=== PATIENT | male | born 1945 | race African-American/Black ===

== ENCOUNTER 2020-10-04 17:49 | Inpatient (IN) | payer MEDICARE, MEDICAID ==
[~2020-10-04] VITALS: Ht 177.8 cm; Wt 62.6 kg
[~2020-10-04 17:49] MED LIST: ALL100T PO; ATE50T PO; GLIP5TAB12 PO; LATA0.0019 EACHEYE; OXYB15TA12 PO; POT20T PO; SIMV-13 PO; TRIA37.577 PO
[2020-10-04] MEDS ORDERED: SODIUM CHLORIDE 0.9% 500 ML IVB ONE (18:15)
[2020-10-04] MEDS ORDERED: ZINC SULFATE 220mg CAP or TAB PO ONE (19:30)
[2020-10-04] MEDS ORDERED: ASCORBIC ACID 500 MG TAB PO ONE (19:30)
[2020-10-04] MEDS ORDERED: CHOLECALCIFEROL (VITD3) 2,000 UNIT CAP PO ONE (19:30)
[2020-10-04] MEDS ORDERED: REMDESIVIR PER PHARMACY 0 ML IV SCH (19:30)
[2020-10-04] MEDS ORDERED: methylPREDNISolone SOD SUCC 125 MG/2 ML VL IV ONE (19:30)
[2020-10-04] MEDS ORDERED: AZITHROMYCIN 500MG/ 250ML 250 ML IV ONE (19:30)
[2020-10-04 19:55] LABS: Basophils # (auto) 0 10 ^3/uL (0-0.2); Basophils % (auto) 0.1 % (0.0-2.0); Eosinophils # (auto) 0.1 10 ^3/uL (0-0.8); Red Cell Distribution Width 13.8 % (11.8-14.3)
[2020-10-04 19:58] LABS: Eosinophils % (auto) 0.8 % (0.0-7.0); Hemoglobin 18.1 g/dL (13.5-17.5); Lymphocytes # (auto) 0.9 10 ^3/uL (0.4-5.4); Lymphocytes % (auto) 6.7 % (10.0-50.0); Mean Corpuscular Hemoglobin 26.9 pg (28.0-32.0); Mean Corpuscular Hgb Conc. 32.9 g/dL (32.0-36.0); Mean Corpuscular Volume 81.8 fL (80.0-100.0); Monocytes # (auto) 0.8 10 ^3/uL (0-1.3); Neutrophils # (auto) 11.3 10 ^3/uL (1.6-8.6); Neutrophils % (auto) 86.4 % (37.0-80.0); Platelet Count (auto) 169 10^3/uL (140-450); Red Blood Cells 6.73 10^6/uL (4.5-5.90)
[2020-10-04 20:10] LABS: Potassium 4.6 mmol/L (3.5-5.1)
[2020-10-04 20:23] LABS: Albumin 2.6 g/dL (3.4-5.0); BUN/Creatinine Ratio 25.4; Bilirubin, Total 1.3 mg/dL (0.2-1.0); CRP High Sensitivity 17.4 mg/dL (< 0.3); Calcium 8.4 mg/dL (8.5-10.1); Total Protein 7.3 g/dL (6.4-8.2)
[2020-10-05] MEDS ORDERED: ONDANSETRON HCL 4 MG/2 ML VIAL IV PRN (01:30)
[2020-10-05] MEDS ORDERED: DOCUSATE SOD 100 MG CAP PO PRN (01:30)
[2020-10-05] MEDS ORDERED: NITROGLYCERIN 0.4 MG SL TAB SL PRN (01:30)
[2020-10-05] MEDS ORDERED: HYDROcodone-ACET 5/325MG TAB PO PRN (01:30)
[2020-10-05] MEDS ORDERED: MORPHINE SULF INJ 2 MG/ML SYRINGE 1ML IV PRN (01:30)
[2020-10-05] MEDS ORDERED: DEXTROSE (50%) 50ML SYRG IV PRN ×2 (01:30→17:15)
[2020-10-05] MEDS ORDERED: ACETAMINOPHEN 325 MG TAB PO PRN (01:30)
[2020-10-05 02:27] LABS: Basophils # (auto) 0 10 ^3/uL (0-0.2); Eosinophils # (auto) 0 10 ^3/uL (0-0.8); Hemoglobin 17.6 g/dL (13.5-17.5); Mean Corpuscular Hemoglobin 26.2 pg (28.0-32.0); Monocytes # (auto) 0.3 10 ^3/uL (0-1.3); Monocytes % (auto) 2.8 % (0.0-12.0); Platelet Count (auto) 162 10^3/uL (140-450)
[2020-10-05 02:28] LABS: Basophils % (auto) 0.1 % (0.0-2.0); Eosinophils % (auto) 0.2 % (0.0-7.0); Hematocrit 54.9 % (41.0-53.0); Lymphocytes # (auto) 0.5 10 ^3/uL (0.4-5.4); Lymphocytes % (auto) 3.9 % (10.0-50.0); Mean Corpuscular Volume 81.9 fL (80.0-100.0); Neutrophils # (auto) 11.2 10 ^3/uL (1.6-8.6); Nucleated Red Blood Cells % 1.3 %; Red Cell Distribution Width 13.9 % (11.8-14.3)
[2020-10-05 02:46] LABS: Albumin 2.5 g/dL (3.4-5.0); Calcium 8.2 mg/dL (8.5-10.1); Magnesium 3.6 mg/dL (1.6-2.6); Potassium 4.6 mmol/L (3.5-5.1)
[2020-10-05 02:51] LABS: Bilirubin, Total 1.3 mg/dL (0.2-1.0); Total Protein 7.1 g/dL (6.4-8.2)
[2020-10-05 02:53] LABS: BUN/Creatinine Ratio 26.3
[2020-10-05] MEDS: SODIUM CHLOR 0.9% PF (SALINE LOCK) 10ML VIAL/SYR IV SCH ×3 (05:57→21:34)
[2020-10-05] MEDS: ACCU-CHEK COMFORT CURVE STRIP VI SCH ×3 (07:02→18:00)
[2020-10-05] MEDS: InsuLIN REG 1unit/0.01ml Soln (100units/ml) SC SCH ×3 (07:04→19:14)
[2020-10-05] MEDS: ZINC SULFATE 220mg CAP or TAB PO SCH (09:18)
[2020-10-05] MEDS: MULTIPLE VITAMIN TAB PO SCH (09:18)
[2020-10-05] MEDS: CHOLECALCIFEROL (VITD3) 2,000 UNIT CAP PO SCH (09:19)
[2020-10-05] MEDS: FAMOTIDINE 20 MG TAB PO SCH ×2 (09:19→21:34)
[2020-10-05] MEDS: ASCORBIC ACID 500 MG TAB PO SCH ×2 (09:19→21:34)
[2020-10-05] MEDS: DexAMETHasone SOD PHOS 10MG/1ML VIAL INJ IV SCH (09:32)
[2020-10-05] MEDS: DOXYCYCLINE 100MG/250ML 250 ML IV SCH ×2 (09:46→22:08)
[2020-10-05] MEDS: HEPARIN SODIUM (PORCINE) 5000 UNITS/ML 1ML VIAL SC SCH ×2 (09:47→21:34)
[2020-10-05] MEDS: BUDESONIDE (INHALATION) 180 MCG IH IN SCH ×2 (10:00→19:02)
[2020-10-05 13:39] VITALS: BP 125/89
[2020-10-05] MEDS ORDERED: SOD CHL 0.45% 1,000 ML IV ONE (17:15)
[2020-10-05] MEDS ORDERED: REMDESIVIR 200 MG in NS 210ml LOADING DOSE ADULT IV ONE (18:00)
[2020-10-05] MEDS ORDERED: InsuLIN REG 1unit/0.01ml Soln (100units/ml) SC SCH (22:00)
[2020-10-06] MEDS: ACCU-CHEK COMFORT CURVE STRIP VI SCH ×5 (00:08→18:00)
[2020-10-06] MEDS: InsuLIN REG 1unit/0.01ml Soln (100units/ml) SC SCH ×6 (00:09→23:06)
[2020-10-06 01:00] VITALS: BP 142/95
[2020-10-06 01:01] VITALS: BP 142/95
[2020-10-06 02:07] VITALS: BP 142/92
[2020-10-06] MEDS: SODIUM CHLOR 0.9% PF (SALINE LOCK) 10ML VIAL/SYR IV SCH ×3 (05:55→23:03)
[2020-10-06] MEDS: ALBUTEROL SULF HFA 90MCG INH 200DOSE IN PRN ×2 (06:45→21:05)
[2020-10-06] MEDS: BUDESONIDE (INHALATION) 180 MCG IH IN SCH ×2 (06:45→21:04)
[2020-10-06 08:00] VITALS: BP_SYST 165; BP_SYST 93; BP_DIAS 137; BP_DIAS 58
[2020-10-06] MEDS: DOXYCYCLINE 100MG/250ML 250 ML IV SCH ×2 (09:36→23:02)
[2020-10-06] MEDS: ZINC SULFATE 220mg CAP or TAB PO SCH (09:36)
[2020-10-06] MEDS: DexAMETHasone SOD PHOS 10MG/1ML VIAL INJ IV SCH (09:36)
[2020-10-06] MEDS: FAMOTIDINE 20 MG TAB PO SCH ×2 (09:37→23:02)
[2020-10-06] MEDS: MULTIPLE VITAMIN TAB PO SCH (09:37)
[2020-10-06] MEDS: CHOLECALCIFEROL (VITD3) 2,000 UNIT CAP PO SCH (09:37)
[2020-10-06] MEDS: ASCORBIC ACID 500 MG TAB PO SCH ×2 (09:37→23:02)
[2020-10-06] MEDS: HEPARIN SODIUM (PORCINE) 5000 UNITS/ML 1ML VIAL SC SCH ×2 (09:53→23:05)
[2020-10-06 13:17] LABS: Urine Bacteria FEW /hpf (None Seen); Urine Blood Negative /uL (Negative); Urine Specific Gravity 1.021 (1.001-1.035); Urine WBC 2 /hpf (0 - 3)
[2020-10-06 13:27] LABS: Protein, Urine 49.1 mg/dL (0.0-11.9)
[2020-10-06 14:21] LABS: Basophils # (auto) 0.1 10 ^3/uL (0-0.2); Basophils % (auto) 0.3 % (0.0-2.0); Eosinophils # (auto) 0 10 ^3/uL (0-0.8); Hematocrit 55.4 % (41.0-53.0); Hemoglobin 17.5 g/dL (13.5-17.5); Lymphocytes # (auto) 0.5 10 ^3/uL (0.4-5.4); Lymphocytes % (auto) 3.1 % (10.0-50.0); Mean Corpuscular Hemoglobin 26.1 pg (28.0-32.0); Mean Corpuscular Hgb Conc. 31.6 g/dL (32.0-36.0); Mean Corpuscular Volume 82.8 fL (80.0-100.0); Monocytes # (auto) 0.8 10 ^3/uL (0-1.3); Monocytes % (auto) 4.7 % (0.0-12.0); Neutrophils # (auto) 16.2 10 ^3/uL (1.6-8.6); Neutrophils % (auto) 91.9 % (37.0-80.0); Nucleated Red Blood Cells % 0.3 %; Platelet Count (auto) 163 10^3/uL (140-450); Red Cell Distribution Width 14.1 % (11.8-14.3); White Blood Cell 17.6 10^3/uL (4.4-10.8)
[2020-10-06 14:37] LABS: Albumin 2.6 g/dL (3.4-5.0); Calcium 8.4 mg/dL (8.5-10.1); Potassium 4.3 mmol/L (3.5-5.1)
[2020-10-06 14:40] LABS: BUN/Creatinine Ratio 34.5; Bilirubin, Total 1.2 mg/dL (0.2-1.0)
[2020-10-06 16:22] VITALS: BP 140/94
[2020-10-06 16:36] LABS: BUN/Creatinine Ratio 34.5; Calcium 8.6 mg/dL (8.5-10.1); Potassium 4.5 mmol/L (3.5-5.1)
[2020-10-06] MEDS: REMDESIVIR 100mg 100 MG in SODIUM CHL 0.9% 230 ML IV SCH (17:30)
[2020-10-06] MEDS: INSULIN LANTUS (GLARGINE) 1 /0.01ml (100units/ml) SC SCH (23:04)
[2020-10-06] MEDS: D5W 5% 1,000 ML IV SCH (23:24)
[2020-10-07] VITALS: BP_SYST 137; BP_SYST 143; BP_DIAS 91; BP_DIAS 93
[2020-10-07] MEDS: ACCU-CHEK COMFORT CURVE STRIP VI SCH ×4 (06:10→17:31)
[2020-10-07] MEDS: InsuLIN REG 1unit/0.01ml Soln (100units/ml) SC SCH ×3 (06:12→17:32)
[2020-10-07] MEDS: D5W 5% 1,000 ML IV SCH ×2 (06:21→15:15)
[2020-10-07] MEDS: SODIUM CHLOR 0.9% PF (SALINE LOCK) 10ML VIAL/SYR IV SCH ×3 (06:21→22:51)
[2020-10-07] MEDS: ALBUTEROL SULF HFA 90MCG INH 200DOSE IN PRN ×2 (07:59→20:14)
[2020-10-07] MEDS: BUDESONIDE (INHALATION) 180 MCG IH IN SCH ×2 (07:59→20:14)
[2020-10-07 08:00] VITALS: BP 132/94
[2020-10-07 08:43] LABS: Basophils # (auto) 0 10 ^3/uL (0-0.2); Eosinophils # (auto) 0 10 ^3/uL (0-0.8); Hemoglobin 17.3 g/dL (13.5-17.5); Lymphocytes # (auto) 0.8 10 ^3/uL (0.4-5.4); Monocytes # (auto) 0.7 10 ^3/uL (0-1.3); Neutrophils # (auto) 10.4 10 ^3/uL (1.6-8.6)
[2020-10-07 08:45] LABS: Basophils % (auto) 0.1 % (0.0-2.0); Eosinophils % (auto) 0.1 % (0.0-7.0); Hematocrit 54.2 % (41.0-53.0); Lymphocytes % (auto) 6.7 % (10.0-50.0); Mean Corpuscular Hemoglobin 26.3 pg (28.0-32.0); Mean Corpuscular Hgb Conc. 31.9 g/dL (32.0-36.0); Mean Corpuscular Volume 82.3 fL (80.0-100.0); Monocytes % (auto) 5.9 % (0.0-12.0); Neutrophils % (auto) 87.2 % (37.0-80.0); Nucleated Red Blood Cells % 0.7 %; Platelet Count (auto) 161 10^3/uL (140-450); Red Blood Cells 6.58 10^6/uL (4.5-5.90); Red Cell Distribution Width 13.8 % (11.8-14.3); White Blood Cell 11.9 10^3/uL (4.4-10.8)
[2020-10-07 09:05] LABS: Potassium 4.1 mmol/L (3.5-5.1)
[2020-10-07 09:14] LABS: Bilirubin, Total 1.2 mg/dL (0.2-1.0); Total Protein 6.7 g/dL (6.4-8.2)
[2020-10-07] MEDS: DexAMETHasone SOD PHOS 10MG/1ML VIAL INJ IV SCH (10:25)
[2020-10-07] MEDS: MULTIPLE VITAMIN TAB PO SCH (10:25)
[2020-10-07] MEDS: HEPARIN SODIUM (PORCINE) 5000 UNITS/ML 1ML VIAL SC SCH ×2 (10:25→22:51)
[2020-10-07] MEDS: ZINC SULFATE 220mg CAP or TAB PO SCH (10:25)
[2020-10-07] MEDS: DOXYCYCLINE 100MG/250ML 250 ML IV SCH ×2 (10:25→22:51)
[2020-10-07] MEDS: FAMOTIDINE 20 MG TAB PO SCH ×2 (10:25→22:51)
[2020-10-07] MEDS: CHOLECALCIFEROL (VITD3) 2,000 UNIT CAP PO SCH (10:25)
[2020-10-07] MEDS: ASCORBIC ACID 500 MG TAB PO SCH ×2 (10:25→22:51)
[2020-10-07] MEDS: NYSTATIN (MOUTH-THROAT) 500,000 UNITS/5 ML SUSP MT SCH ×3 (12:00→22:51)
[2020-10-07 12:25] LABS: Calcium 8.5 mg/dL (8.5-10.1)
[2020-10-07] MEDS: REMDESIVIR 100mg 100 MG in SODIUM CHL 0.9% 230 ML IV SCH (15:07)
[2020-10-07 16:04] VITALS: BP 135/84
[2020-10-07] MEDS: INSULIN LANTUS (GLARGINE) 1 /0.01ml (100units/ml) SC SCH (22:52)
[2020-10-08] VITALS: BP 130/87
[2020-10-08] MEDS: D5W 5% 1,000 ML IV SCH ×2 (01:15→14:48)
[2020-10-08] MEDS: InsuLIN REG 1unit/0.01ml Soln (100units/ml) SC SCH ×4 (06:00→17:42)
[2020-10-08] MEDS: ACCU-CHEK COMFORT CURVE STRIP VI SCH ×4 (06:00→17:18)
[2020-10-08] MEDS: SODIUM CHLOR 0.9% PF (SALINE LOCK) 10ML VIAL/SYR IV SCH ×3 (06:07→21:55)
[2020-10-08] MEDS: NYSTATIN (MOUTH-THROAT) 500,000 UNITS/5 ML SUSP MT SCH ×4 (06:32→22:00)
[2020-10-08 06:49] LABS: Basophils # (auto) 0 10 ^3/uL (0-0.2); Basophils % (auto) 0.1 % (0.0-2.0); Hemoglobin 16.1 g/dL (13.5-17.5); Mean Corpuscular Volume 81.4 fL (80.0-100.0); White Blood Cell 11.4 10^3/uL (4.4-10.8)
[2020-10-08 06:51] LABS: Eosinophils # (auto) 0 10 ^3/uL (0-0.8); Eosinophils % (auto) 0.4 % (0.0-7.0); Lymphocytes % (auto) 8.8 % (10.0-50.0); Mean Corpuscular Hemoglobin 26.8 pg (28.0-32.0); Mean Corpuscular Hgb Conc. 32.9 g/dL (32.0-36.0); Monocytes # (auto) 0.6 10 ^3/uL (0-1.3); Neutrophils # (auto) 9.8 10 ^3/uL (1.6-8.6); Neutrophils % (auto) 85.7 % (37.0-80.0); Nucleated Red Blood Cells % 0.5 %; Platelet Count (auto) 135 10^3/uL (140-450); Red Blood Cells 6.02 10^6/uL (4.5-5.90); Red Cell Distribution Width 13.9 % (11.8-14.3)
[2020-10-08 07:16] LABS: Potassium 3.9 mmol/L (3.5-5.1)
[2020-10-08 07:28] LABS: Albumin 2.4 g/dL (3.4-5.0); BUN/Creatinine Ratio 25.2; Bilirubin, Total 1.2 mg/dL (0.2-1.0); Total Protein 6.3 g/dL (6.4-8.2)
[2020-10-08] MEDS: BUDESONIDE (INHALATION) 180 MCG IH IN SCH ×2 (07:32→21:32)
[2020-10-08] MEDS: ALBUTEROL SULF HFA 90MCG INH 200DOSE IN PRN ×2 (07:32→21:32)
[2020-10-08 08:00] VITALS: BP 130/76
[2020-10-08] MEDS: ZINC SULFATE 220mg CAP or TAB PO SCH (10:00)
[2020-10-08] MEDS: FAMOTIDINE 20 MG TAB PO SCH ×2 (10:01→22:00)
[2020-10-08] MEDS: MULTIPLE VITAMIN TAB PO SCH (10:01)
[2020-10-08] MEDS: ASCORBIC ACID 500 MG TAB PO SCH ×2 (10:01→22:00)
[2020-10-08] MEDS: DexAMETHasone SOD PHOS 10MG/1ML VIAL INJ IV SCH (10:02)
[2020-10-08] MEDS: CHOLECALCIFEROL (VITD3) 2,000 UNIT CAP PO SCH (10:02)
[2020-10-08] MEDS: DOXYCYCLINE 100MG/250ML 250 ML IV SCH ×2 (10:02→21:56)
[2020-10-08] MEDS: HEPARIN SODIUM (PORCINE) 5000 UNITS/ML 1ML VIAL SC SCH ×2 (10:13→22:05)
[2020-10-08 16:00] VITALS: BP 91/46
[2020-10-08] MEDS: REMDESIVIR 100mg 100 MG in SODIUM CHL 0.9% 230 ML IV SCH (16:43)
[2020-10-08 16:45] VITALS: BP 138/74
[2020-10-08 17:00] VITALS: BP 130/82
[2020-10-08 19:05] VITALS: BP 133/84
[2020-10-08] MEDS: INSULIN LANTUS (GLARGINE) 1 /0.01ml (100units/ml) SC SCH (22:05)
[2020-10-09] VITALS: BP 148/94
[2020-10-09] MEDS: SODIUM CHLOR 0.9% PF (SALINE LOCK) 10ML VIAL/SYR IV SCH ×3 (05:40→23:28)
[2020-10-09] MEDS: NYSTATIN (MOUTH-THROAT) 500,000 UNITS/5 ML SUSP MT SCH ×4 (05:40→23:02)
[2020-10-09] MEDS: ACCU-CHEK COMFORT CURVE STRIP VI SCH ×5 (05:41→23:47)
[2020-10-09] MEDS: InsuLIN REG 1unit/0.01ml Soln (100units/ml) SC SCH ×5 (06:09→23:46)
[2020-10-09] MEDS: BUDESONIDE (INHALATION) 180 MCG IH IN SCH ×2 (06:33→20:38)
[2020-10-09] MEDS: ALBUTEROL SULF HFA 90MCG INH 200DOSE IN PRN ×2 (06:34→20:38)
[2020-10-09 07:57] LABS: Basophils # (auto) 0 10 ^3/uL (0-0.2); Basophils % (auto) 0.1 % (0.0-2.0); Eosinophils # (auto) 0 10 ^3/uL (0-0.8); Eosinophils % (auto) 0.3 % (0.0-7.0); Lymphocytes # (auto) 1.1 10 ^3/uL (0.4-5.4); Monocytes # (auto) 0.7 10 ^3/uL (0-1.3); Monocytes % (auto) 4.7 % (0.0-12.0); Neutrophils # (auto) 12.5 10 ^3/uL (1.6-8.6); Nucleated Red Blood Cells % 0.3 %
[2020-10-09 08:00] VITALS: BP 128/86
[2020-10-09 08:02] LABS: Lymphocytes % (auto) 7.6 % (10.0-50.0); Mean Corpuscular Hemoglobin 26.3 pg (28.0-32.0); Mean Corpuscular Volume 82.2 fL (80.0-100.0); Neutrophils % (auto) 87.3 % (37.0-80.0); Platelet Count (auto) 152 10^3/uL (140-450); Red Blood Cells 6.45 10^6/uL (4.5-5.90); Red Cell Distribution Width 13.8 % (11.8-14.3); White Blood Cell 14.3 10^3/uL (4.4-10.8)
[2020-10-09 08:14] LABS: Potassium 3.9 mmol/L (3.5-5.1)
[2020-10-09 08:29] LABS: Albumin 2.5 g/dL (3.4-5.0); BUN/Creatinine Ratio 23.6; Bilirubin, Total 1.3 mg/dL (0.2-1.0); CRP High Sensitivity 5.03 mg/dL (< 0.3); Calcium 8.3 mg/dL (8.5-10.1); Total Protein 6.6 g/dL (6.4-8.2)
[2020-10-09] MEDS: ZINC SULFATE 220mg CAP or TAB PO SCH (10:19)
[2020-10-09] MEDS: MULTIPLE VITAMIN TAB PO SCH (10:19)
[2020-10-09] MEDS: DexAMETHasone SOD PHOS 10MG/1ML VIAL INJ IV SCH (10:19)
[2020-10-09] MEDS: FAMOTIDINE 20 MG TAB PO SCH ×2 (10:19→23:02)
[2020-10-09] MEDS: CHOLECALCIFEROL (VITD3) 2,000 UNIT CAP PO SCH (10:20)
[2020-10-09] MEDS: ASCORBIC ACID 500 MG TAB PO SCH ×2 (10:20→23:02)
[2020-10-09] MEDS: HEPARIN SODIUM (PORCINE) 5000 UNITS/ML 1ML VIAL SC SCH ×2 (10:20→23:19)
[2020-10-09] MEDS: DOXYCYCLINE 100MG/250ML 250 ML IV SCH ×2 (10:47→23:01)
[2020-10-09] MEDS: REMDESIVIR 100mg 100 MG in SODIUM CHL 0.9% 230 ML IV SCH (14:38)
[2020-10-09 16:23] VITALS: BP 122/84
[2020-10-09] MEDS: Glucerna Carbsteady SHAKE Vanilla 8oz PO SCH (17:56)
[2020-10-09] MEDS ORDERED: Ensure HIGH Protein Chocolate 8oz Bottle PO SCH (18:00)
[2020-10-09] MEDS: INSULIN LANTUS (GLARGINE) 1 /0.01ml (100units/ml) SC SCH (23:20)
[2020-10-10] VITALS: BP 125/93
[2020-10-10] MEDS: ACCU-CHEK COMFORT CURVE STRIP VI SCH ×4 (05:40→23:41)
[2020-10-10] MEDS: NYSTATIN (MOUTH-THROAT) 500,000 UNITS/5 ML SUSP MT SCH ×4 (05:40→21:56)
[2020-10-10] MEDS: InsuLIN REG 1unit/0.01ml Soln (100units/ml) SC SCH ×4 (05:40→23:56)
[2020-10-10] MEDS: SODIUM CHLOR 0.9% PF (SALINE LOCK) 10ML VIAL/SYR IV SCH ×3 (05:40→21:56)
[2020-10-10] MEDS: BUDESONIDE (INHALATION) 180 MCG IH IN SCH ×2 (06:30→20:22)
[2020-10-10] MEDS: ALBUTEROL SULF HFA 90MCG INH 200DOSE IN PRN ×2 (06:30→20:23)
[2020-10-10 06:39] LABS: Hematocrit 52.2 % (41.0-53.0); Hemoglobin 17.2 g/dL (13.5-17.5); Mean Corpuscular Hemoglobin 26.9 pg (28.0-32.0); Mean Corpuscular Volume 81.4 fL (80.0-100.0); Platelet Count (auto) 173 10^3/uL (140-450); Red Blood Cells 6.41 10^6/uL (4.5-5.90); Red Cell Distribution Width 13.8 % (11.8-14.3)
[2020-10-10 06:49] LABS: Basophils % (manual) 0 (0.0-2.0); Blast Cells 0; Metamyelocytes % 0; Myelocytes % 0; Promyelocytes % 0; Reactive Lymphocytes 0
[2020-10-10 07:00] LABS: Potassium 4.1 mmol/L (3.5-5.1)
[2020-10-10 07:13] LABS: Albumin 2.4 g/dL (3.4-5.0); Bilirubin, Total 1.2 mg/dL (0.2-1.0); Calcium 8.3 mg/dL (8.5-10.1); Total Protein 6.6 g/dL (6.4-8.2)
[2020-10-10 08:00] VITALS: BP 124/90
[2020-10-10] MEDS: Glucerna Carbsteady SHAKE Vanilla 8oz PO SCH ×3 (08:00→18:07)
[2020-10-10 08:53] LABS: Band Neutrophils % (manual) 5; Eosinophils % (manual) 2 (0-7); Lymphocytes % (manual) 9 (10.0-50.0); Monocytes % (manual) 1 (0-12)
[2020-10-10] MEDS: FAMOTIDINE 20 MG TAB PO SCH ×2 (10:00→21:56)
[2020-10-10] MEDS: MULTIPLE VITAMIN TAB PO SCH (10:00)
[2020-10-10] MEDS: CHOLECALCIFEROL (VITD3) 2,000 UNIT CAP PO SCH (10:37)
[2020-10-10] MEDS: DexAMETHasone SOD PHOS 10MG/1ML VIAL INJ IV SCH (10:37)
[2020-10-10] MEDS: ZINC SULFATE 220mg CAP or TAB PO SCH (10:37)
[2020-10-10] MEDS: ASCORBIC ACID 500 MG TAB PO SCH ×2 (10:37→21:56)
[2020-10-10] MEDS: HEPARIN SODIUM (PORCINE) 5000 UNITS/ML 1ML VIAL SC SCH ×2 (10:55→21:57)
[2020-10-10 16:00] VITALS: BP 117/94
[2020-10-10] MEDS: INSULIN LANTUS (GLARGINE) 1 /0.01ml (100units/ml) SC SCH (21:57)
[2020-10-10] MEDS: PIPERACILLIN-TAZOB 3.375GM 100 ML IV SCH (23:41)
[2020-10-11] VITALS: BP 147/88
[2020-10-11] MEDS: NYSTATIN (MOUTH-THROAT) 500,000 UNITS/5 ML SUSP MT SCH ×4 (06:00→22:11)
[2020-10-11] MEDS: BUDESONIDE (INHALATION) 180 MCG IH IN SCH ×2 (06:05→19:53)
[2020-10-11] MEDS: ACCU-CHEK COMFORT CURVE STRIP VI SCH ×4 (06:06→23:54)
[2020-10-11] MEDS: SODIUM CHLOR 0.9% PF (SALINE LOCK) 10ML VIAL/SYR IV SCH ×3 (06:07→22:11)
[2020-10-11] MEDS: PIPERACILLIN-TAZOB 3.375GM 100 ML IV SCH ×4 (06:07→23:54)
[2020-10-11] MEDS: InsuLIN REG 1unit/0.01ml Soln (100units/ml) SC SCH ×3 (06:07→17:47)
[2020-10-11 08:00] VITALS: BP 134/94
[2020-10-11 08:46] LABS: Basophils # (auto) 0 10 ^3/uL (0-0.2); Eosinophils # (auto) 0.1 10 ^3/uL (0-0.8); Eosinophils % (auto) 0.3 % (0.0-7.0); Monocytes # (auto) 1.2 10 ^3/uL (0-1.3)
[2020-10-11 08:48] LABS: Basophils % (auto) 0.2 % (0.0-2.0); Hemoglobin 17.8 g/dL (13.5-17.5); Lymphocytes # (auto) 0.9 10 ^3/uL (0.4-5.4); Lymphocytes % (auto) 4.1 % (10.0-50.0); Mean Corpuscular Hemoglobin 26.3 pg (28.0-32.0); Mean Corpuscular Hgb Conc. 31.5 g/dL (32.0-36.0); Mean Corpuscular Volume 83.6 fL (80.0-100.0); Monocytes % (auto) 5.7 % (0.0-12.0); Neutrophils # (auto) 19.3 10 ^3/uL (1.6-8.6); Neutrophils % (auto) 89.7 % (37.0-80.0); Nucleated Red Blood Cells % 1.3 %; Platelet Count (auto) 195 10^3/uL (140-450); Red Blood Cells 6.77 10^6/uL (4.5-5.90); Red Cell Distribution Width 14.4 % (11.8-14.3); White Blood Cell 21.5 10^3/uL (4.4-10.8)
[2020-10-11 08:50] LABS: Hematocrit 56.6 % (41.0-53.0)
[2020-10-11 09:26] LABS: Potassium 4.7 mmol/L (3.5-5.1)
[2020-10-11 09:27] LABS: BUN/Creatinine Ratio 24.9; Bilirubin, Total 1.2 mg/dL (0.2-1.0); Calcium 8.3 mg/dL (8.5-10.1)
[2020-10-11 09:28] LABS: Albumin 2.4 g/dL (3.4-5.0)
[2020-10-11] MEDS: Glucerna Carbsteady SHAKE Vanilla 8oz PO SCH ×3 (09:34→17:54)
[2020-10-11] MEDS: FAMOTIDINE 20 MG TAB PO SCH ×2 (09:34→22:11)
[2020-10-11] MEDS: DexAMETHasone SOD PHOS 10MG/1ML VIAL INJ IV SCH (09:34)
[2020-10-11] MEDS: ZINC SULFATE 220mg CAP or TAB PO SCH (10:00)
[2020-10-11] MEDS: ASCORBIC ACID 500 MG TAB PO SCH ×2 (10:00→22:00)
[2020-10-11] MEDS: MULTIPLE VITAMIN TAB PO SCH (10:00)
[2020-10-11] MEDS: CHOLECALCIFEROL (VITD3) 2,000 UNIT CAP PO SCH (10:00)
[2020-10-11] MEDS: HEPARIN SODIUM (PORCINE) 5000 UNITS/ML 1ML VIAL SC SCH ×2 (10:11→22:14)
[2020-10-11 16:00] VITALS: BP 122/90
[2020-10-11] MEDS: ALBUTEROL SULF HFA 90MCG INH 200DOSE IN PRN (19:54)
[2020-10-11] MEDS: SOD CHL 0.45% 1,000 ML IV SCH (22:11)
[2020-10-11] MEDS: INSULIN LANTUS (GLARGINE) 1 /0.01ml (100units/ml) SC SCH (22:14)
[2020-10-12] VITALS: BP 130/86
[2020-10-12] MEDS: InsuLIN REG 1unit/0.01ml Soln (100units/ml) SC SCH ×4 (00:09→17:22)
[2020-10-12] MEDS: NYSTATIN (MOUTH-THROAT) 500,000 UNITS/5 ML SUSP MT SCH ×4 (06:00→22:36)
[2020-10-12] MEDS: ACCU-CHEK COMFORT CURVE STRIP VI SCH ×3 (06:05→17:51)
[2020-10-12] MEDS: PIPERACILLIN-TAZOB 3.375GM 100 ML IV SCH ×3 (06:05→17:50)
[2020-10-12] MEDS: SODIUM CHLOR 0.9% PF (SALINE LOCK) 10ML VIAL/SYR IV SCH ×3 (06:06→22:36)
[2020-10-12 07:15] LABS: Eosinophils # (auto) 0 10 ^3/uL (0-0.8); Eosinophils % (auto) 0.2 % (0.0-7.0)
[2020-10-12 07:17] LABS: Basophils # (auto) 0.1 10 ^3/uL (0-0.2); Basophils % (auto) 0.3 % (0.0-2.0); Hematocrit 50.8 % (41.0-53.0); Hemoglobin 16.7 g/dL (13.5-17.5); Lymphocytes # (auto) 0.7 10 ^3/uL (0.4-5.4); Lymphocytes % (auto) 3.2 % (10.0-50.0); Mean Corpuscular Hemoglobin 26.9 pg (28.0-32.0); Mean Corpuscular Volume 81.5 fL (80.0-100.0); Monocytes # (auto) 1.3 10 ^3/uL (0-1.3); Monocytes % (auto) 6.4 % (0.0-12.0); Neutrophils # (auto) 18.9 10 ^3/uL (1.6-8.6); Neutrophils % (auto) 89.9 % (37.0-80.0); Nucleated Red Blood Cells % 0.1 %; Platelet Count (auto) 175 10^3/uL (140-450); Red Blood Cells 6.23 10^6/uL (4.5-5.90); Red Cell Distribution Width 14.1 % (11.8-14.3)
[2020-10-12 07:33] LABS: Potassium 3.8 mmol/L (3.5-5.1)
[2020-10-12 07:43] LABS: Albumin 2.3 g/dL (3.4-5.0); BUN/Creatinine Ratio 24.6; Calcium 8.4 mg/dL (8.5-10.1); Total Protein 6.2 g/dL (6.4-8.2)
[2020-10-12 08:00] VITALS: BP 127/90
[2020-10-12] MEDS: Glucerna Carbsteady SHAKE Vanilla 8oz PO SCH ×3 (08:00→17:51)
[2020-10-12] MEDS: ZINC SULFATE 220mg CAP or TAB PO SCH (09:40)
[2020-10-12] MEDS: CHOLECALCIFEROL (VITD3) 2,000 UNIT CAP PO SCH (09:41)
[2020-10-12] MEDS: FAMOTIDINE 20 MG TAB PO SCH ×2 (09:41→22:00)
[2020-10-12] MEDS: MULTIPLE VITAMIN TAB PO SCH (09:41)
[2020-10-12] MEDS: ASCORBIC ACID 500 MG TAB PO SCH ×2 (09:41→22:00)
[2020-10-12] MEDS: DexAMETHasone SOD PHOS 10MG/1ML VIAL INJ IV SCH (09:52)
[2020-10-12] MEDS: HEPARIN SODIUM (PORCINE) 5000 UNITS/ML 1ML VIAL SC SCH ×2 (09:56→22:37)
[2020-10-12] MEDS: BUDESONIDE (INHALATION) 180 MCG IH IN SCH ×2 (12:09→20:02)
[2020-10-12] MEDS: SOD CHL 0.45% 1,000 ML IV SCH (12:11)
[2020-10-12 16:00] VITALS: BP 131/79
[2020-10-12] MEDS: ALBUTEROL SULF HFA 90MCG INH 200DOSE IN PRN (20:02)
[2020-10-12] MEDS: INSULIN LANTUS (GLARGINE) 1 /0.01ml (100units/ml) SC SCH (22:38)
[2020-10-13] VITALS: BP 128/97
[2020-10-13] MEDS: ACCU-CHEK COMFORT CURVE STRIP VI SCH ×5 (00:35→23:22)
[2020-10-13] MEDS: PIPERACILLIN-TAZOB 3.375GM 100 ML IV SCH ×5 (00:35→23:22)
[2020-10-13] MEDS: NYSTATIN (MOUTH-THROAT) 500,000 UNITS/5 ML SUSP MT SCH ×4 (06:00→22:00)
[2020-10-13] MEDS: InsuLIN REG 1unit/0.01ml Soln (100units/ml) SC SCH ×5 (06:00→23:21)
[2020-10-13] MEDS: SODIUM CHLOR 0.9% PF (SALINE LOCK) 10ML VIAL/SYR IV SCH ×3 (06:13→23:20)
[2020-10-13] MEDS: ALBUTEROL SULF HFA 90MCG INH 200DOSE IN PRN ×2 (06:20→18:34)
[2020-10-13] MEDS: BUDESONIDE (INHALATION) 180 MCG IH IN SCH ×2 (06:20→18:34)
[2020-10-13 08:00] VITALS: BP 138/87
[2020-10-13 08:21] LABS: Basophils # (auto) 0.1 10 ^3/uL (0-0.2); Basophils % (auto) 0.3 % (0.0-2.0); Eosinophils # (auto) 0 10 ^3/uL (0-0.8); Eosinophils % (auto) 0.3 % (0.0-7.0); Hematocrit 53.2 % (41.0-53.0); Hemoglobin 16.9 g/dL (13.5-17.5); Lymphocytes # (auto) 0.9 10 ^3/uL (0.4-5.4); Lymphocytes % (auto) 6.4 % (10.0-50.0); Mean Corpuscular Hemoglobin 26.7 pg (28.0-32.0); Mean Corpuscular Hgb Conc. 31.8 g/dL (32.0-36.0); Mean Corpuscular Volume 83.8 fL (80.0-100.0); Monocytes # (auto) 1.1 10 ^3/uL (0-1.3); Monocytes % (auto) 7.6 % (0.0-12.0); Neutrophils # (auto) 12.6 10 ^3/uL (1.6-8.6); Neutrophils % (auto) 85.4 % (37.0-80.0); Nucleated Red Blood Cells % 0.1 %; Platelet Count (auto) 189 10^3/uL (140-450); Red Blood Cells 6.35 10^6/uL (4.5-5.90); Red Cell Distribution Width 14.1 % (11.8-14.3); White Blood Cell 14.8 10^3/uL (4.4-10.8)
[2020-10-13] MEDS: FAMOTIDINE 20 MG TAB PO SCH ×3 (09:58→23:21)
[2020-10-13] MEDS: DexAMETHasone SOD PHOS 10MG/1ML VIAL INJ IV SCH (09:58)
[2020-10-13] MEDS: ZINC SULFATE 220mg CAP or TAB PO SCH (09:58)
[2020-10-13] MEDS: ASCORBIC ACID 500 MG TAB PO SCH ×3 (09:58→23:21)
[2020-10-13] MEDS: MULTIPLE VITAMIN TAB PO SCH (10:00)
[2020-10-13] MEDS: HEPARIN SODIUM (PORCINE) 5000 UNITS/ML 1ML VIAL SC SCH ×2 (10:00→23:30)
[2020-10-13] MEDS: CHOLECALCIFEROL (VITD3) 2,000 UNIT CAP PO SCH (10:01)
[2020-10-13] MEDS: Glucerna Carbsteady SHAKE Vanilla 8oz PO SCH ×3 (10:02→18:11)
[2020-10-13 11:20] LABS: Albumin 2.4 g/dL (3.4-5.0); Calcium 7.9 mg/dL (8.5-10.1); Potassium 3.9 mmol/L (3.5-5.1)
[2020-10-13 11:23] LABS: BUN/Creatinine Ratio 22.5; Bilirubin, Total 1.4 mg/dL (0.2-1.0); Total Protein 7.1 g/dL (6.4-8.2)
[2020-10-13 16:00] VITALS: BP 129/89
[2020-10-13] MEDS: INSULIN LANTUS (GLARGINE) 1 /0.01ml (100units/ml) SC SCH (23:31)
[2020-10-14] VITALS: BP 134/97
[2020-10-14] MEDS: NYSTATIN (MOUTH-THROAT) 500,000 UNITS/5 ML SUSP MT SCH (06:00)
[2020-10-14] MEDS: SODIUM CHLOR 0.9% PF (SALINE LOCK) 10ML VIAL/SYR IV SCH ×3 (06:15→22:00)
[2020-10-14] MEDS: PIPERACILLIN-TAZOB 3.375GM 100 ML IV SCH (06:15)
[2020-10-14] MEDS: ACCU-CHEK COMFORT CURVE STRIP VI SCH ×4 (06:16→23:32)
[2020-10-14] MEDS: InsuLIN REG 1unit/0.01ml Soln (100units/ml) SC SCH ×4 (06:27→23:39)
[2020-10-14 06:38] LABS: Hemoglobin 16.8 g/dL (13.5-17.5); Platelet Count (auto) 193 10^3/uL (140-450)
[2020-10-14 06:40] LABS: Mean Corpuscular Hemoglobin 26.7 pg (28.0-32.0); Mean Corpuscular Hgb Conc. 32.9 g/dL (32.0-36.0); Mean Corpuscular Volume 81.2 fL (80.0-100.0); Red Blood Cells 6.28 10^6/uL (4.5-5.90); White Blood Cell 13.1 10^3/uL (4.4-10.8)
[2020-10-14 06:53] LABS: Basophils % (manual) 0 (0.0-2.0); Blast Cells 0; Metamyelocytes % 0; Myelocytes % 0; Promyelocytes % 0; Reactive Lymphocytes 0
[2020-10-14 06:59] LABS: Calcium 8.1 mg/dL (8.5-10.1)
[2020-10-14 07:05] LABS: Albumin 2.4 g/dL (3.4-5.0); BUN/Creatinine Ratio 25.4; Bilirubin, Total 1.2 mg/dL (0.2-1.0); Total Protein 6.6 g/dL (6.4-8.2)
[2020-10-14] MEDS: BUDESONIDE (INHALATION) 180 MCG IH IN SCH ×2 (07:12→19:42)
[2020-10-14] MEDS: ALBUTEROL SULF HFA 90MCG INH 200DOSE IN PRN ×2 (07:12→19:42)
[2020-10-14 08:00] VITALS: BP 132/88
[2020-10-14] MEDS: CHOLECALCIFEROL (VITD3) 2,000 UNIT CAP PO SCH (10:00)
[2020-10-14] MEDS: levoFLOXacin 250 MG TAB PO SCH (10:00)
[2020-10-14] MEDS: MULTIPLE VITAMIN TAB PO SCH (10:00)
[2020-10-14] MEDS: FAMOTIDINE 20 MG TAB PO SCH ×2 (10:00→22:00)
[2020-10-14] MEDS: ASCORBIC ACID 500 MG TAB PO SCH ×2 (10:00→22:00)
[2020-10-14] MEDS: ZINC SULFATE 220mg CAP or TAB PO SCH (10:00)
[2020-10-14] MEDS: HEPARIN SODIUM (PORCINE) 5000 UNITS/ML 1ML VIAL SC SCH ×2 (10:23→23:31)
[2020-10-14] MEDS: DexAMETHasone SOD PHOS 10MG/1ML VIAL INJ IV SCH (10:25)
[2020-10-14] MEDS: Glucerna Carbsteady SHAKE Vanilla 8oz PO SCH ×3 (10:42→18:00)
[2020-10-14 12:35] LABS: Band Neutrophils % (manual) 1; Eosinophils % (manual) 2 (0-7); Lymphocytes % (manual) 12 (10.0-50.0); Monocytes % (manual) 8 (0-12)
[2020-10-14 16:00] VITALS: BP_SYST 119; BP_SYST 132; BP_DIAS 80; BP_DIAS 88
[2020-10-14] MEDS: INSULIN LANTUS (GLARGINE) 1 /0.01ml (100units/ml) SC SCH (22:00)
[2020-10-15] VITALS: BP 118/84
[2020-10-15] MEDS: ACCU-CHEK COMFORT CURVE STRIP VI SCH ×3 (06:00→17:14)
[2020-10-15] MEDS: InsuLIN REG 1unit/0.01ml Soln (100units/ml) SC SCH ×3 (06:00→17:28)
[2020-10-15] MEDS: ALBUTEROL SULF HFA 90MCG INH 200DOSE IN PRN ×2 (06:08→19:12)
[2020-10-15] MEDS: BUDESONIDE (INHALATION) 180 MCG IH IN SCH ×2 (06:08→19:11)
[2020-10-15] MEDS: SODIUM CHLOR 0.9% PF (SALINE LOCK) 10ML VIAL/SYR IV SCH ×3 (07:19→22:00)
[2020-10-15 08:00] VITALS: BP 107/74
[2020-10-15] MEDS: Glucerna Carbsteady SHAKE Vanilla 8oz PO SCH ×3 (09:17→17:28)
[2020-10-15] MEDS: ZINC SULFATE 220mg CAP or TAB PO SCH ×2 (10:00→10:39)
[2020-10-15] MEDS: CHOLECALCIFEROL (VITD3) 2,000 UNIT CAP PO SCH ×2 (10:00→10:40)
[2020-10-15] MEDS: MULTIPLE VITAMIN TAB PO SCH ×2 (10:00→10:39)
[2020-10-15] MEDS: FAMOTIDINE 20 MG TAB PO SCH ×2 (10:00→10:40)
[2020-10-15] MEDS: ASCORBIC ACID 500 MG TAB PO SCH ×3 (10:00→22:00)
[2020-10-15] MEDS: levoFLOXacin 250 MG TAB PO SCH ×2 (10:00→10:39)
[2020-10-15] MEDS: DexAMETHasone SOD PHOS 10MG/1ML VIAL INJ IV SCH (10:39)
[2020-10-15] MEDS: HEPARIN SODIUM (PORCINE) 5000 UNITS/ML 1ML VIAL SC SCH ×2 (10:41→22:00)
[2020-10-15 16:00] VITALS: BP 118/72
[2020-10-15] MEDS: INSULIN LANTUS (GLARGINE) 1 /0.01ml (100units/ml) SC SCH (22:00)
[2020-10-16] VITALS: BP 121/75
[2020-10-16] MEDS: ACCU-CHEK COMFORT CURVE STRIP VI SCH ×5 (06:00→22:40)
[2020-10-16] MEDS: InsuLIN REG 1unit/0.01ml Soln (100units/ml) SC SCH ×5 (07:11→23:13)
[2020-10-16] MEDS: SODIUM CHLOR 0.9% PF (SALINE LOCK) 10ML VIAL/SYR IV SCH ×3 (07:12→22:39)
[2020-10-16] MEDS: BUDESONIDE (INHALATION) 180 MCG IH IN SCH ×2 (07:25→22:00)
[2020-10-16 07:32] LABS: Potassium 4.3 mmol/L (3.5-5.1)
[2020-10-16 07:36] LABS: BUN/Creatinine Ratio 39.7; Calcium 8.3 mg/dL (8.5-10.1)
[2020-10-16 08:14] VITALS: BP 103/85
[2020-10-16] MEDS: Glucerna Carbsteady SHAKE Vanilla 8oz PO SCH ×3 (08:58→17:29)
[2020-10-16] MEDS: MULTIPLE VITAMIN TAB PO SCH (11:00)
[2020-10-16] MEDS: levoFLOXacin 250 MG TAB PO SCH (11:00)
[2020-10-16] MEDS: ZINC SULFATE 220mg CAP or TAB PO SCH (11:00)
[2020-10-16] MEDS: DexAMETHasone SOD PHOS 10MG/1ML VIAL INJ IV SCH (11:00)
[2020-10-16] MEDS: ASCORBIC ACID 500 MG TAB PO SCH ×2 (11:00→22:49)
[2020-10-16] MEDS: CHOLECALCIFEROL (VITD3) 2,000 UNIT CAP PO SCH (11:00)
[2020-10-16] MEDS: FAMOTIDINE 20 MG TAB PO SCH (11:00)
[2020-10-16] MEDS: HEPARIN SODIUM (PORCINE) 5000 UNITS/ML 1ML VIAL SC SCH ×2 (11:00→22:50)
[2020-10-16 12:00] LABS: Hemoglobin 14.7 g/dL (13.5-17.5)
[2020-10-16 12:02] LABS: Mean Corpuscular Hemoglobin 26.6 pg (28.0-32.0); Mean Corpuscular Hgb Conc. 32.6 g/dL (32.0-36.0); Mean Corpuscular Volume 81.5 fL (80.0-100.0); Platelet Count (auto) 215 10^3/uL (140-450); Red Blood Cells 5.52 10^6/uL (4.5-5.90); White Blood Cell 25.2 10^3/uL (4.4-10.8)
[2020-10-16 12:11] LABS: Basophils % (manual) 0 (0.0-2.0); Blast Cells 0; Eosinophils % (manual) 0 (0-7); Metamyelocytes % 0; Myelocytes % 0; Promyelocytes % 0; Reactive Lymphocytes 0
[2020-10-16 13:45] LABS: Band Neutrophils % (manual) 3; Lymphocytes % (manual) 8 (10.0-50.0); Monocytes % (manual) 9 (0-12)
[2020-10-16] MEDS ORDERED: CHOL1CAP47 PO (13:50)
[2020-10-16] MEDS ORDERED: ASCO500T11 PO (13:50)
[2020-10-16 15:50] VITALS: BP 130/91
[2020-10-16] MEDS: ALBUTEROL SULF HFA 90MCG INH 200DOSE IN PRN (22:37)
[2020-10-16] MEDS: INSULIN LANTUS (GLARGINE) 1 /0.01ml (100units/ml) SC SCH (22:51)
[2020-10-16 23:42] VITALS: BP 129/87
[2020-10-17] MEDS: ACCU-CHEK COMFORT CURVE STRIP VI SCH ×3 (06:00→17:39)
[2020-10-17] MEDS: InsuLIN REG 1unit/0.01ml Soln (100units/ml) SC SCH ×3 (06:00→18:13)
[2020-10-17] MEDS: SODIUM CHLOR 0.9% PF (SALINE LOCK) 10ML VIAL/SYR IV SCH ×3 (06:18→22:16)
[2020-10-17] MEDS: BUDESONIDE (INHALATION) 180 MCG IH IN SCH ×2 (07:40→19:31)
[2020-10-17] MEDS: ALBUTEROL SULF HFA 90MCG INH 200DOSE IN PRN ×2 (07:40→19:31)
[2020-10-17 08:00] VITALS: BP 139/93
[2020-10-17] MEDS: Glucerna Carbsteady SHAKE Vanilla 8oz PO SCH ×3 (08:00→17:39)
[2020-10-17] MEDS: CHOLECALCIFEROL (VITD3) 2,000 UNIT CAP PO SCH (10:00)
[2020-10-17] MEDS: MULTIPLE VITAMIN TAB PO SCH (10:00)
[2020-10-17] MEDS: levoFLOXacin 250 MG TAB PO SCH (10:00)
[2020-10-17] MEDS: FAMOTIDINE 20 MG TAB PO SCH (10:00)
[2020-10-17] MEDS: ASCORBIC ACID 500 MG TAB PO SCH ×2 (10:00→22:17)
[2020-10-17] MEDS: ZINC SULFATE 220mg CAP or TAB PO SCH (10:00)
[2020-10-17] MEDS: DexAMETHasone SOD PHOS 10MG/1ML VIAL INJ IV SCH (10:41)
[2020-10-17] MEDS: HEPARIN SODIUM (PORCINE) 5000 UNITS/ML 1ML VIAL SC SCH ×2 (10:50→22:22)
[2020-10-17 16:00] VITALS: BP 141/83
[2020-10-17] MEDS: INSULIN LANTUS (GLARGINE) 1 /0.01ml (100units/ml) SC SCH (22:23)
[2020-10-18] VITALS: BP 118/74
[2020-10-18] MEDS: ACCU-CHEK COMFORT CURVE STRIP VI SCH ×4 (00:14→18:00)
[2020-10-18] MEDS: InsuLIN REG 1unit/0.01ml Soln (100units/ml) SC SCH ×4 (00:17→18:36)
[2020-10-18] MEDS: SODIUM CHLOR 0.9% PF (SALINE LOCK) 10ML VIAL/SYR IV SCH ×2 (05:59→14:00)
[2020-10-18 08:00] VITALS: BP 118/78
[2020-10-18] MEDS: Glucerna Carbsteady SHAKE Vanilla 8oz PO SCH ×3 (08:00→18:00)
[2020-10-18] MEDS: HEPARIN SODIUM (PORCINE) 5000 UNITS/ML 1ML VIAL SC SCH (09:39)
[2020-10-18] MEDS: ZINC SULFATE 220mg CAP or TAB PO SCH (10:00)
[2020-10-18] MEDS: levoFLOXacin 250 MG TAB PO SCH (10:00)
[2020-10-18] MEDS: ASCORBIC ACID 500 MG TAB PO SCH (10:00)
[2020-10-18] MEDS: FAMOTIDINE 20 MG TAB PO SCH (10:00)
[2020-10-18] MEDS: CHOLECALCIFEROL (VITD3) 2,000 UNIT CAP PO SCH (10:00)
[2020-10-18] MEDS: MULTIPLE VITAMIN TAB PO SCH (10:00)
[2020-10-18] MEDS: DexAMETHasone SOD PHOS 10MG/1ML VIAL INJ IV SCH (10:34)
[2020-10-18 12:28] VITALS: BP 118/78
[2020-10-18 15:43] VITALS: BP 100/66
[2020-10-18] MEDS: ALBUTEROL SULF HFA 90MCG INH 200DOSE IN PRN (20:07)
[2020-10-18] MEDS: BUDESONIDE (INHALATION) 180 MCG IH IN SCH (20:07)
[2020-10-18 23:27] VITALS: BP 100/74
== END 2020-10-18 23:20 | DRG 720 ==
LOC: EDBD 17:49 → ER 17:49 → TELE 17:50 → TELE-WESTW 10-05 23:19
PROVIDERS: ADMIT Nurse Practitioner Family; ATTEND Internal Medicine Pulmonary Disease
PROC: XW13325 Transfusion of Convalescent Plasma (Nonautologous) into Peripheral Vein, Percutaneous Approach, New Technology Group 5 (ICD-10-PCS; principal; 2020-10-05)
PROC: XW033E5 Introduction of Remdesivir Anti-infective into Peripheral Vein, Percutaneous Approach, New Technology Group 5 (ICD-10-PCS; 2020-10-05)
DX: A41.89 Other specified sepsis (principal); U07.1 COVID-19; J12.82 Pneumonia due to coronavirus disease 2019; J96.01 Acute respiratory failure with hypoxia; N17.9 Acute kidney failure, unspecified; E87.0 Hyperosmolality and hypernatremia; E11.65 Type 2 diabetes mellitus with hyperglycemia; I12.9 Hypertensive chronic kidney disease with stage 1 through stage 4 chronic kidney disease, or unspecified chronic kidney disease; N18.31 Chronic kidney disease, stage 3a; K59.00 Constipation, unspecified; E87.1 Hypo-osmolality and hyponatremia; E11.22 Type 2 diabetes mellitus with diabetic chronic kidney disease; Z96.641 Presence of right artificial hip joint; N28.1 Cyst of kidney, acquired
CPT/HCPCS: 36415; 36600; 71045; 74176; 76775; 80048; 80053; 81001; 82306; 82570; 82728; 82805; 82962; 83036; 83615; 83690; 83735; 84156; 84300; 84484; 85007; 85025; 85027; 86141; 86850; 86900; 86901; 87040; 87086; 87426; 93005; 94640; 96361; 96365; 96366; 96375; 99291; G0378; J1100; J1815; J2405; J2543; J3490

== ENCOUNTER 2020-11-06 17:16 | Inpatient (IN) | payer MEDICARE, MEDICAID ==
[~2020-11-06] VITALS: Ht 170.2 cm; Wt 72.6 kg
[~2020-11-06 17:16] MED LIST changes: +ASCO500T11 PO; +CHOL1CAP47 PO
[2020-11-06] MEDS ORDERED: FAMOTIDINE (10MG/ML) 2ML VL IV ONE (18:00)
[2020-11-06] MEDS ORDERED: ONDANSETRON HCL 4 MG/2 ML VIAL IV ONE (18:00)
[2020-11-06] MEDS ORDERED: cefTRIAXone SOD 1,000 MG VL IM ONE (19:00)
[2020-11-06] MEDS ORDERED: cefTRIAXone 1GM/50ML D5W 50 ML IV ONE (19:15)
[2020-11-06 19:26] LABS: Basophils # (auto) 0.1 10 ^3/uL (0-0.2); Basophils % (auto) 0.7 % (0.0-2.0); Eosinophils # (auto) 0 10 ^3/uL (0-0.8); Eosinophils % (auto) 0.3 % (0.0-7.0); Hematocrit 40.9 % (41.0-53.0); Hemoglobin 12.9 g/dL (13.5-17.5); Lymphocytes # (auto) 1.5 10 ^3/uL (0.4-5.4); Lymphocytes % (auto) 12.5 % (10.0-50.0); Mean Corpuscular Hemoglobin 28.1 pg (28.0-32.0); Mean Corpuscular Hgb Conc. 31.6 g/dL (32.0-36.0); Mean Corpuscular Volume 88.9 fL (80.0-100.0); Monocytes # (auto) 0.6 10 ^3/uL (0-1.3); Monocytes % (auto) 4.7 % (0.0-12.0); Neutrophils # (auto) 9.8 10 ^3/uL (1.6-8.6); Neutrophils % (auto) 81.8 % (37.0-80.0); Nucleated Red Blood Cells % 0.2 %; Platelet Count (auto) 149 10^3/uL (140-450)
[2020-11-06 19:36] LABS: Albumin 2.5 g/dL (3.4-5.0); Anion Gap 9 (5-15); Blood Urea Nitrogen 16 mg/dL (7-18); Calcium 7.6 mg/dL (8.5-10.1); Carbon Dioxide 26 mmol/L (21-32); Chloride 98 mmol/L (98-107); Glucose 96 mg/dL (74-106); Magnesium 2.2 mg/dL (1.6-2.6); Potassium 4.1 mmol/L (3.5-5.1); Sodium 133 mmol/L (136-145)
[2020-11-06 19:41] LABS: Red Cell Distribution Width 21.9 % (11.8-14.3)
[2020-11-06 19:45] LABS: Alanine Aminotransferase 44 U/L (16-61); Alkaline Phosphatase 106 U/L (45-117); Aspartate Aminotransferase 25 U/L (15-37); BUN/Creatinine Ratio 16.7; Bilirubin, Total 0.8 mg/dL (0.2-1.0); GFR African American 98 mL/min; GFR Non-African American 81 mL/min; Total Protein 6.5 g/dL (6.4-8.2)
[2020-11-06] MEDS ORDERED: ACETAMINOPHEN 325 MG TAB PO PRN (21:00)
[2020-11-06] MEDS ORDERED: DEXTROSE (50%) 50ML SYRG IV PRN (21:00)
[2020-11-06] MEDS ORDERED: ALBUTEROL SULF 2.5 MG/0.5ML(0.5%) NEB SOLN NEB PRN (21:00)
[2020-11-06] MEDS ORDERED: ONDANSETRON HCL 4 MG/2 ML VIAL IV PRN (21:00)
[2020-11-06] MEDS ORDERED: AZITHROMYCIN 500MG/ 250ML 250 ML IV SCH (21:09)
[2020-11-06] MEDS ORDERED: ENOXAPARIN SOD 40 MG/0.4 ML SYRINGE SC SCH (21:10)
[2020-11-06] MEDS ORDERED: ACCU-CHEK COMFORT CURVE STRIP VI SCH (22:00)
[2020-11-06] MEDS ORDERED: InsuLIN REG 1unit/0.01ml Soln (100units/ml) SC SCH (22:00)
[2020-11-06] MEDS ORDERED: TEMAZEPAM 15 MG CAP PO PRN (22:00)
[2020-11-06] MEDS ORDERED: ATORVASTATIN 20 MG TAB PO SCH (22:00)
[2020-11-06 22:29] VITALS: BP 130/94
[2020-11-07 05:30] VITALS: BP 131/87
[2020-11-07] MEDS ORDERED: cefTRIAXone 1GM/50ML D5W 50 ML IV SCH (09:00)
[2020-11-07] MEDS ORDERED: FAMOTIDINE 20 MG TAB PO SCH (10:00)
[2020-11-07] MEDS ORDERED: ATENOLOL 50 MG TAB PO SCH (10:00)
[2020-11-07] MEDS ORDERED: ALLOPURINOL 100 MG TAB PO SCH (10:00)
== END 2020-11-07 06:16 | disposition left against medical advice (07) | DRG 139 ==
LOC: ER 17:16 → OVERFLOW 17:17
PROVIDERS: ADMIT Nurse Practitioner; ATTEND Nurse Practitioner
DX: J18.9 Pneumonia, unspecified organism (principal); E44.0 Moderate protein-calorie malnutrition; Z53.29 Procedure and treatment not carried out because of patient's decision for other reasons; Z20.822 Contact with and (suspected) exposure to COVID-19; E11.9 Type 2 diabetes mellitus without complications; I10 Essential (primary) hypertension; Z86.16 Personal history of COVID-19; Z68.25 Body mass index [BMI] 25.0-25.9, adult; G47.00 Insomnia, unspecified; D72.829 Elevated white blood cell count, unspecified; Z83.3 Family history of diabetes mellitus; R10.9 Unspecified abdominal pain; Z88.8 Allergy status to other drugs, medicaments and biological substances
CPT/HCPCS: 36415; 71045; 74176; 76705; 80053; 82962; 83605; 83690; 83735; 83880; 84484; 85025; 96365; 96367; 96375; G0378; J0696; J2405; J3490

== ENCOUNTER 2020-12-01 03:53 | Emergency (ER) | payer MEDICARE, MEDICAID ==
[~2020-12-01] VITALS: Ht 180.3 cm; Wt 68.0 kg
[2020-12-01 07:28] LABS: Basophils # (auto) 0 10 ^3/uL (0-0.2); Basophils % (auto) 0.3 % (0.0-2.0); Eosinophils # (auto) 0 10 ^3/uL (0-0.8); Eosinophils % (auto) 0.1 % (0.0-7.0); Hematocrit 40.8 % (41.0-53.0); Hemoglobin 13.1 g/dL (13.5-17.5); Lymphocytes # (auto) 1.4 10 ^3/uL (0.4-5.4); Lymphocytes % (auto) 9.9 % (10.0-50.0); Mean Corpuscular Hemoglobin 27.9 pg (28.0-32.0); Mean Corpuscular Hgb Conc. 32.2 g/dL (32.0-36.0); Mean Corpuscular Volume 86.6 fL (80.0-100.0); Monocytes # (auto) 0.7 10 ^3/uL (0-1.3); Monocytes % (auto) 5.2 % (0.0-12.0); Neutrophils # (auto) 11.6 10 ^3/uL (1.6-8.6); Neutrophils % (auto) 84.5 % (37.0-80.0); Nucleated Red Blood Cells % 0.2 %; Platelet Count (auto) 285 10^3/uL (140-450); Red Blood Cells 4.71 10^6/uL (4.5-5.90); Red Cell Distribution Width 17.7 % (11.8-14.3); White Blood Cell 13.7 10^3/uL (4.4-10.8)
[2020-12-01 07:50] LABS: Chloride 102 mmol/L (98-107); Potassium 3.7 mmol/L (3.5-5.1); Sodium 140 mmol/L (136-145)
[2020-12-01 07:52] LABS: INR 1.05 (0.9-1.15); Partial Thromboplastin Time 28.1 sec (23.0-31.2)
[2020-12-01 08:28] LABS: Alanine Aminotransferase 27 U/L (16-61); Albumin 2.9 g/dL (3.4-5.0); Alkaline Phosphatase 92 U/L (45-117); Anion Gap 7 (5-15); Aspartate Aminotransferase 27 U/L (15-37); BUN/Creatinine Ratio 14.3; Bilirubin, Total 0.6 mg/dL (0.2-1.0); Blood Urea Nitrogen 13 mg/dL (7-18); Calcium 8.5 mg/dL (8.5-10.1); Carbon Dioxide 31 mmol/L (21-32); GFR African American 104 mL/min; GFR Non-African American 86 mL/min; Glucose 77 mg/dL (74-106); Total Protein 6.9 g/dL (6.4-8.2)
[2020-12-01 09:01] LABS: Urine Bacteria FEW /hpf (None Seen); Urine Blood Negative /uL (Negative); Urine Hyaline Cast FEW /lpf (0 - 2); Urine Mucus FEW (None Seen); Urine Specific Gravity 1.018 (1.001-1.035); Urine WBC 12 /hpf (0 - 3)
[2020-12-01] MEDS ORDERED: OCTREOTIDE ACETATE 500 MCG in SODIUM CHL 0.9% 100 ML IV ONE (13:00)
[2020-12-01] MEDS ORDERED: OCTREOTIDE ACETATE 100 MCG in SODIUM CHL 0.9% 50 ML IV ONE (13:00)
[2020-12-01 17:00] VITALS: BP 104/64
== END 2020-12-01 18:44 | disposition home or self-care (01) ==
LOC: ER 03:53 → EDBD 03:53 → ER 18:34
DX: E11.649 Type 2 diabetes mellitus with hypoglycemia without coma (principal); R07.9 Chest pain, unspecified; N39.0 Urinary tract infection, site not specified; G93.40 Encephalopathy, unspecified; I10 Essential (primary) hypertension; E44.0 Moderate protein-calorie malnutrition; Z68.20 Body mass index [BMI] 20.0-20.9, adult; Z88.6 Allergy status to analgesic agent
CPT/HCPCS: 36415; 71045; 80053; 81001; 82962; 84484; 85025; 85610; 85730; 96365; 96366